=== PATIENT | female | born 1955 | race Caucasian/White ===

== ENCOUNTER 2016-07-08 13:35 | Emergency (ER) | payer MEDICARE, OTHER ==
[2016-07-08 15:02] LABS: HEMOGLOBIN 13.2 gm/dl (12.3-15.3); RED BLOOD COUNT 4.36 M/UL (4.00-5.10); WHITE BLOOD COUNT 8.2 K/UL (4.5-11.0)
[2016-07-08 15:20] LABS: BUN/CREATININE RATIO 13 (0-10)
== END 2016-07-08 16:38 | disposition home or self-care (01) ==
LOC: ER1 13:35
PROVIDERS: Physician Assistant Medical
DX: S81.852A Open bite, left lower leg, initial encounter (principal); F17.210 Nicotine dependence, cigarettes, uncomplicated; Z90.710 Acquired absence of both cervix and uterus; Z88.1 Allergy status to other antibiotic agents; Z79.899 Other long term (current) drug therapy; W55.01XA Bitten by cat, initial encounter
CPT/HCPCS: 36415; 80053; 85025; 93971; 99284

== ENCOUNTER → 2016-10-27 | Outpatient (CLI) | payer MEDICARE, OTHER | LOC: CT 09-30 15:30 | DX: I10 Essential (primary) hypertension (principal) | CPT/HCPCS: G0297 ==

== ENCOUNTER → 2020-10-30 | Outpatient (CLI) | payer MEDICARE, OTHER | LOC: KOH-I 10-24 08:30 | DX: G45.9 Transient cerebral ischemic attack, unspecified (principal); G31.9 Degenerative disease of nervous system, unspecified | CPT/HCPCS: 70450 ==

== ENCOUNTER → 2021-02-18 | Outpatient (CLI) | payer MEDICARE, OTHER | LOC: KOH-I 02-11 08:30 | DX: F17.210 Nicotine dependence, cigarettes, uncomplicated (principal) | CPT/HCPCS: 71271 ==

== ENCOUNTER → 2021-06-19 | Outpatient (CLI) | payer MEDICARE, OTHER | LOC: KOH-I 06-06 13:30 | DX: G45.3 Amaurosis fugax (principal) | CPT/HCPCS: 93880 ==